=== PATIENT | female | born 1995 | race Caucasian/White ===

== ENCOUNTER 2017-11-30 22:10 | Outpatient (CLI) | payer OTHER, SELFPAY ==
[2017-11-30 22:35] VITALS: BMI 31.1
--- NOTE | 2017-12-01 07:59 | OB.TRI.NOTE ---
History of Present Illness Date of Service: 12/01/17 Was patient seen by the physician?: No Reason For Visit: DECREASED MOVEMENT Date of Service: 11/30/17 Allergies No Known Allergies Allergy (Verified 11/30/17 22:36) NST - FHR Rate Baby A Baseline: 130 Variability:: Moderate Accelerations:: 15 x 15 Decelerations:: None NST Reactive:: Yes FHR Category:: Category I Uterine Activity:: IRREGULAR Impression/Plan 22YO @ 37.6 WKS, DECREASED FM 1) NST - REACTIVE CATEGORY 1- WELL BEING ESTABLISHED 2) DC HOME
== END 2017-11-30 23:00 | disposition home or self-care (01) ==
LOC: WPOUT 22:33 → WP 22:33
PROVIDERS: Visit Provider Obstetrics & Gynecology
DX: O36.8130 Decreased fetal movements, third trimester, not applicable or unspecified (principal); Z3A.37 37 weeks gestation of pregnancy
CPT/HCPCS: 59025; 59050; 99218; G0378

== ENCOUNTER 2017-12-09 06:51 | Inpatient (IN) | payer OTHER, SELFPAY ==
[2017-12-09 06:56] VITALS: BMI 31.1
[2017-12-09 07:54] LABS: Hematocrit 30.4 % (37-47); Hemoglobin 9.6 g/dl (12.0-15.0); Mean Corp Hgb Conc 31.6 g/gl (32-36); Mean Corpuscular Volume 82.4 fL (81-99); Mean Platelet Vol. 11.1 fl (6.2-12.0); Platelet Count 251 K/mm3 (150-450); RBC Distribution Width CV 13.8 % (11.6-14.6); RBC Distribution Width SD 39.8 fl (35.1-43.9); Red Blood Count 3.69 M/mm3 (4.2-5.4); Scan Indicated on CBC? Y/N NO
[2017-12-09] MEDS: Oxytocin 30 units/NS 500 ml 30 UNITS/500 ML IV.SOLN IV (07:55)
[2017-12-09] MEDS: Lactated Ringers 1,000 ML 50 ML IV ×2 (07:55→11:37)
[2017-12-09] MEDS: fentaNYL-bupivacaine (epidural) 100 ML BAG EPIDURAL (11:40)
[2017-12-09] MEDS: Ondansetron 4 MG/2 ML Vial IV (15:27)
[2017-12-09] MEDS: Oxytocin 30 units/NS 500 ml 30 UNITS/500 ML IV.SOLN 334 UNITS IV (16:24)
--- NOTE | 2017-12-09 16:53 | HP.PCM_ITS ---
History Date of Admission: 12/09/17 Final MEGHANN: 12/15/17 Final MEGHANN Source: US <20 weeks Gestational age: 39 Weeks and 1 Days History of this : This is a 22 year-old, 2 para 1 female presents at 39 weeks 1 day gestation with EDC of 12/15/2017 by first trimester ultrasound alone presents for elective induction of labor. She denies any vaginal bleeding or leaking of fluid. She has had good movement and some regular contractions. Her was complicated to date by antepartum anemia and cholelithiasis. Allergies No Known Allergies Allergy (Verified 11/30/17 22:36) Home Medications: Home Medications Vits [Prenatabs FA ] 1 tablet PO DAILY 04/24/16 Smoking Status: Former smoker Alcohol: None Number of Fetus(es): 1 History Past Pregnancies: Past Pregnancies Delivery Date Name GA/Weeks Outcome Route Weight Infant Gender Labor Length Anesthesia Delivery Location Provider FOB Review of Systems Constitutional: Denies: Anorexia, Chills, Fever Cardiovascular: Denies: Chest Pain Respiratory: Denies: Shortness of Breath Gastrointestinal: Denies: Abdominal Pain Skin: Denies: Rash Physical Exam General: Alert, Cooperative, No apparent distress Cardiovascular: Regular rate Lungs: Normal air movement Abdomen: Soft, Non Tender, Non-Distended, Gravid, Appropriate for Gestational Age Extremities:: Other - trace edema MELTING SUPERVISOR: Normal external genitalia Estimated gestational size: Appropriate for gestational size Presentation: Cephalic Cervix Dilation (cm): 2.5 Station: -2 Effacement (%): 60 Assessment/Plan This is a 22 year-old, 2 para 1 at 39 1/7 weeks gestation for elective induction of labor. Risk benefits and alternatives have been discussed with the patient, her questions were answered to her satisfaction she desires to proceed. Estimated weight is less than 4500 g clinically and pelvis is clinically adequate to expect vaginal delivery. May have epidural, nitrous oxide or Nubain as needed for pain control.
--- NOTE | 2017-12-09 16:55 | PCM.OB.VAG ---
Vaginal Delivery Maternal Presentation: Elective Induction Method of Induction: Pitocin, Amniotomy Amniotic Membrane Rupture Type: Artificial Amniotic Fluid Description: Clear Final MEGHANN: 12/15/17 Final MEGHANN Source: US <20 weeks Gestational age: 39 Weeks and 1 Days Date of Procedure: 12/09/17 Pre-Operative Diagnosis: labor Post-Operative Diagnosis: same Surgery/ Procedure Performed: Spontaneous Vaginal Delivery Type of Anesthesia: Epidural Description of Procedure: A vigorous female was delivered JASMYN over a second-degree perineal laceration. The remainder the was delivered with maternal pushing and gentle traction only in less than 15 seconds. The Pitocin infusion was initiated for active management of the third stage. The cord was clamped and cut after 1 minute. The infant was attended to by the waiting nursing staff. The placenta was delivered spontaneously and intact. The cervix and vagina were intact. The second-degree perineal laceration was repaired with 3-0 Vicryl suture in a running standard fashion. Sponge and needle counts were correct. A vaginal sweep was completed by me. Presentation: JASMYN Placental Delivery Description: Spontaneous Placenta Disposition: [facility] Cord Vessel Description: 3 Vessels Cord Entanglement: None Estimated Blood Loss: 300 Infant A gender: Female (1 minute): 8 (5 minute): 9 Episiotomy Description: None Laceration: 2nd degree - Perineal Medications given after delivery: IV Pitocin Complications: None
[2017-12-09] MEDS: Oxytocin 30 units/NS 500 ml 30 UNITS/500 ML IV.SOLN 167 UNITS IV (17:00)
[2017-12-09 19:44] VITALS: BP 127/72; PULSE 76; RESP 17; TEMP 36.8; O2SAT 99
[2017-12-09] MEDS: Naproxen 250 MG Tablet PO (19:51)
[2017-12-09 23:58] VITALS: BP 110/59; PULSE 74; RESP 17; TEMP 37.2; O2SAT 98
[2017-12-09] MEDS: Acetaminophen 500 MG Tablet 1000 MG PO (23:58)
[2017-12-09] MEDS: Dibucaine 30 GM Tube 1 APPLIC TOPICAL (23:59)
[2017-12-10 02:35] VITALS: BP 119/80; TEMP 36.6
[2017-12-10 05:10] VITALS: BP 105/63; PULSE 74; RESP 16; TEMP 36.5; O2SAT 97
[2017-12-10 08:50] VITALS: BP 112/55; PULSE 65; RESP 16; TEMP 36.8
[2017-12-10] MEDS: Naproxen 250 MG Tablet PO (09:14)
--- NOTE | 2017-12-10 10:17 | DCINST_ITS ---
Discharge Diet: No Restrictions Discharge Activity: Return to Normal Activity, May not drive while taking narcotic pain medications., May Shower May resume sexual activity in: 4-6 weeks Additional Activity Instructions:: Nothing in the vagina for 4-6 weeks. You may return to work/school in 6 weeks. Call your doctor if your incision/area has: Continuous Slow Oozing, Sudden Increased Bleeding, Increased Pain/ Swelling, Increased Redness, Foul Smelling Discharge Additional Instructions: If you experience any of the following, contact your healthcare provider. * Bleeding that soaks a pad every hour for 2 hours * Fever 100.4 or higher * Unrelieved incision or abdominal pain * Swelling, redness, discharge or bleeding from your incision or episiotomy site * Your incision begins to separate * Problems urinating (including inability to urinate or burning while urinating). * Visual changes * Severe headache * Flu-like symptoms * Pain or redness in one of both of your breasts * Pain, warmth, tenderness or swelling in your legs, especially the calf area * Frequent nausea and vomiting * Symptoms of depression or anxiety If you experience any of the following, call 911 or go to the nearest Emergency Room. * Chest pain * Problems breathing * Seizure activity * Partial or complete paralysis of a body part, slurred speech, weakness or drooping of the face, or a sudden inability to walk or hold your balance Allergies/Adverse Reactions: Allergies No Known Allergies Allergy (Verified 11/30/17 22:36) Medications to take at Discharge Vits [Prenatabs FA ] 1 tablet PO DAILY 04/24/16 Ibuprofen [Motrin] 600 mg PO Q6H PRN #60 tablet 12/10/17 The following prescriptions were given: Ibuprofen [Motrin] 600 mg PO Q6H PRN #60 tablet PRN Reason: Pain Please Follow Up With: Desiree Drake MD - [phone] When: Call to make an appointment with your provider's office in 1-2 weeks if desired and in 6 weeks. If you had elevated Blood Pressure or 4th degree laceration you will need to be seen in 2 weeks. Primary Care Physician: Care Physician,No Primary [Primary Care Provider] - Test Results: Test results from this visit will be discussed in further detail at your follow- up appointment, if applicable.
--- NOTE | 2017-12-10 10:17 | PCM.PN.OB ---
Subjective: pain well controlled, average lochia - Physical Exam General: Alert, Cooperative, No apparent distress Vital Signs Temp Pulse Resp BP Pulse Ox 98.2 F 65 16 112/55 L 97 12/10/17 08:50 12/10/17 08:50 12/10/17 08:50 12/10/17 08:50 12/10/17 05:10 Oxygen Delivery Method Room Air Weight: 90.1 kg Body Mass Index (BMI) 31.1 Intake and Output for Last 24 Hours 12/08/17 12/09/17 12/10/17 23:59 23:59 23:59 Intake Total 2251 / 2251 Output Total 750 / 750 500 / 500 Balance 1501 / 1501 -500 / -500 Laboratory Tests Past 24 Hrs 12/09/17 07:35 Blood Type B POSITIVE Antibody Screen NEGATIVE Medical Necessity - Tobacco Use Smoking Status: Former smoker Assessment/Plan PPD#1 doing well infant bottlefeeding desires d/c today if ok w/ peds
[2017-12-10 12:08] VITALS: BP 119/74; PULSE 83; RESP 16; TEMP 36.8
[2017-12-10 16:00] VITALS: BP 112/71; PULSE 75; RESP 16; TEMP 36.8; O2SAT 96
== END 2017-12-10 18:00 | disposition home or self-care (01) | DRG 807 ==
PROVIDERS: Admitting Provider Obstetrics & Gynecology; Referring Provider Obstetrics & Gynecology; Visit Provider Obstetrics & Gynecology
DX: O99.02 Anemia complicating childbirth (principal); D64.9 Anemia, unspecified; O70.1 Second degree perineal laceration during delivery; Z87.891 Personal history of nicotine dependence; Z3A.39 39 weeks gestation of pregnancy; Z37.0 Single live birth
CPT/HCPCS: 59025; 59050; 85027; 86850; 86900; 99218; J7120; G0378; J2405

== ENCOUNTER 2017-12-13 19:00 | Inpatient (IN) | payer OTHER, SELFPAY ==
[2017-12-13 19:01] VITALS: BP 142/79; PULSE 111; RESP 18; TEMP 38.2; O2SAT 100; BMI 29.0
[2017-12-13 19:15] VITALS: BP 139/79; PULSE 109; RESP 16; O2SAT 98
--- NOTE | 2017-12-13 19:36 | RAD_ITS ---
STUDY: X-RAY CHEST REASON FOR EXAM: Female, 22 years old. Fever and cough with shortness of breath and bodyaches TECHNIQUE: AP COMPARISON: None. FINDINGS: The lungs are clear and expanded. There is no demonstrated pleural abnormality. Normal size heart. Normal mediastinum and altagracia. Normal visualized pulmonary arteries. Normal visualized aortic arch and descending thoracic aorta. Normal visualized thoracic spine. Normal visualized ribs, clavicles, and shoulders. There is no demonstrated abnormality of the visualized soft tissue structures of the upper abdomen. RAD/Chest 1 View (Portable) IMPRESSION: Normal x-ray examination of the chest. Electronically Signed: Randall Chao MD at 20:05 EST , Service support ,
[2017-12-13 20:08] LABS: Absolute Lymphocyte Count 0.89 X10^3/ul (0.83-4.51); Absolute Neutrophil Count 14.5 X10^3/uL (2.0-7.7); Basophil# 0.01 X10^3/uL; Basophil% 0.1 % (0-1); Eosinophil# 0.08 X10^3/uL; Eosinophils% 0.5 % (0-5); Hematocrit 30.3 % (37-47); Hemoglobin 9.3 g/dl (12.0-15.0); Lymphocyte # 0.89 X10^3/ul (4.0); Lymphocyte % 5.5 % (19-41); Mean Corp Hgb Conc 30.7 g/gl (32-36); Mean Corpuscular Hgb 25.1 pg (27.0-32.0); Mean Corpuscular Volume 81.7 fL (81-99); Mean Platelet Vol. 9.8 fl (6.2-12.0); Monocyte% 4.3 % (0-10); Neutrophil # 14.53 X10^3/uL (2.7-7.7); Neutrophil % 89.4 % (47-70); Platelet Count 249 K/mm3 (150-450); RBC Distribution Width CV 14.6 % (11.6-14.6); RBC Distribution Width SD 43.6 fl (35.1-43.9); Red Blood Count 3.71 M/mm3 (4.2-5.4); White Blood Count 16.3 K/mm3 (4.4-11.0)
[2017-12-13 20:13] LABS: POSITIVE COUNT NO; POSITIVE DIFFERENTIAL NO; POSITIVE MORPHOLOGY NO
[2017-12-13] MEDS: Acetaminophen 500 MG Tablet 1000 MG PO (20:15)
[2017-12-13] MEDS: 0.9% Normal Saline 1,000 ML 1000 ML IV (20:15)
[2017-12-13 20:29] LABS: Mucous, Urine 0 SEEN /hpf (<or=2+)
[2017-12-13 20:30] LABS: Glucose, Dipstick Normal (Normal); Ketone-Dipstick Negative (Negative); Leukocyte Esterase-Dipstick 500 /ul (Negative); Nitrite-Dipstick Negative (Negative); Occult Blood-Urine 250 /ul (Negative); Protein-Dipstick 100 mg/dl (Negative); Urine Bilirubin Dipstick Negative (Negative); Urine Clarity Cloudy (Clear); Urine Urobilinogen 4 mg/dl (Normal)
[2017-12-13 20:37] LABS: Color, Urine SEE COMMENT BELOW (Yellow)
[2017-12-13 20:38] LABS: ALB/GLOB Ratio 0.6 RATIO (0.9-2.4); AST(SGOT) 17 U/L (15-37); Alanine Aminotransfer ALT/SGPT 16 U/L (13-56); Albumin, Serum 2.7 g/dL (3.2-5.0); Alkaline Phosphatase 164 U/L (45-117); Anion Gap 9 (5-15); BUN 4 mg/dL (7-18); BUN/Creat Ratio 5.4 RATIO (10-20); Calcium,Total 8.2 mg/dL (8.5-10.1); Chloride 104 mmol/L (98-107); Creatinine, Serum 0.74 mg/dL (0.55-1.02); EST Glomerular Filtration Rate 103 mL/min (>60); Est Glom Filt Rate - Afr Amer 125 mL/min (>60); Estimated Creatinine Clearance 114.98 ml/min; Globulin 4.7 g/dL (2.2-4.2); Glucose 86 mg/dL (74-106); Potassium 3.3 mmol/L (3.5-5.1); Protein, Total 7.4 g/dL (6.4-8.2); Sodium Level 137 mmol/L (136-145)
[2017-12-13 20:39] LABS: Red Blood Cells-Urine > 100 SEEN /hpf (0-5); Squamous Epithelial Cells - UA 5-10 SEEN /hpf (5-10); White Blood Cells >100 SEEN /hpf (0-5)
[2017-12-13 20:40] LABS: Bacteria 2+ /hpf (None Seen)
[2017-12-13 20:41] LABS: Lactic Acid 1.1 mmol/L (0.4-2.0)
[2017-12-13] MEDS: Piperacil/Tazobactam 3.375 GM/50 ML ML IV (21:10)
[2017-12-13] MEDS: Ibuprofen 600 MG Tablet PO (21:10)
--- NOTE | 2017-12-13 21:22 | HP.PCM_ITS ---
Problem List (1) Sepsis Status: Acute (2) Cystitis Status: Acute History of Present Illness Date of Admission: 12/13/17 Chief Complaint: fever and chills The patient is a 22 year old F who is about 6 weeks and with a significant history of gallstones; and anemia during ; who presents with persistent fever and chills that started on the same day of admission. Patient reported that she had a temperature of 102.7 at home. Associated with her symptoms is generalized body aches and abdominal cramps. Her abdominal cramps has resolved. Patient was noted to have heart rate persistently above 100 while at the emergency department. On December 09, 2017 patient had a vaginal delivery of a baby girl. She did not have any complications during or delivery. PRINT COLOR OPERATOR evaluated patient at the emergency department and cleared patient for any OB issues. Patient reports that her vaginal discharge has been declining. She denies any odor to her vaginal discharge. Patient denies any urinary symptoms. At the emergency department patient was found to have abnormal urinalysis. Past Medical History Medical History: Medical History (Last Updated 12/13/17 @ 21:46 by Flako Jim MD) Gallstone K80.20 Allergies No Known Allergies Allergy (Verified 12/13/17 19:01) Home Medications: Ambulatory Orders Medication Instructions Recorded Ibuprofen [Motrin] 600 mg PO Q6H PRN #60 tablet 12/10/17 Acetaminophen [Tylenol Extra 1,000 mg PO Q6H PRN 12/13/17 Strength] Ferrous Gluconate [Iron] 1 tab PO BID 12/13/17 Surgical History: no surgical history Lives: With Family Smoking Status: Never smoker Tobacco Use: Non-smoker Alcohol: Occasional - *Family History Maternal Family History: Family History (Last Reviewed 12/13/17 @ 23:59 by Flako Jim MD) Mother Cervical cancer Review of Systems Constitutional: Reports: Anorexia, Chills, Fever. Denies: Weight Change HEENT: Reports: Head Aches. Denies: Sinus Congestion, Sinus Drainage Cardiovascular: Denies: Chest Pain, Palpitations Respiratory: Denies: Cough, Shortness of breath at rest, Sputum production Gastrointestinal: Reports: Abdominal Pain. Denies: Nausea, Vomiting Genitourinary: Denies: Dysuria Musculoskeletal: Denies: Joint Pain, Joint Tenderness Skin: Denies: Rash, Wounds Neurological: Denies: Numbness, Tingling, Focal weakness Psychiatric: Denies: Anxiety, Depression, Homicidal Ideations, Suicidal Ideations Hematologic/ Lymphatic: Denies: Easy Bruising, Easy Bleeding VTE Information - Inpt Only VTE Present on Admission: No VTE Mechan Device Prophylaxis: None VTE Pharm Prophylaxis ordered?: Yes Patient Problems: Active and Suspected Problems (Last Updated 12/13/17 @ 21:46 by Flako Jim MD) Sepsis (Acute) Cystitis (Acute) - Physical Exam General: Alert, Oriented x3, Cooperative HEENT: Atraumatic, PERRLA, EOMI, Normocephalic Neck: Supple, No JVD, Negative Carotid Bruits Lungs: Clear to auscultation, Normal air movement Cardiovascular: Regular rate, No murmurs Abdomen: Bowel Sounds Present, Soft, Non Tender Extremities: No edema, Capillary Refill Less than 3 Seconds Skin: No rashes, No breakdown Musculoskeletal: No Tenderness to Palpation of Joints or Extremities Neurological: Cranial nerves II-XII grossly intact Psych/Mental Status: Normal Affect, Appropriate Vital Signs Temp Pulse Resp BP Pulse Ox 100.8 F H 109 H 16 139/79 H 98 12/13/17 19:01 12/13/17 19:15 12/13/17 19:15 12/13/17 19:15 12/13/17 19:15 Oxygen Delivery Method Room Air Weight: 84 kg Body Mass Index (BMI) 29.0 Microbiology Past 72 Hours 12/13/17 19:45 Influenza Types A,B Direct FA (KOURTNEY) - Final Mucosa - Nasopharyngeal Laboratory Tests Past 24 Hrs 12/13/17 12/13/17 12/13/17 19:55 19:55 19:55 WBC 16.3 H RBC 3.71 L Hgb 9.3 L Hct 30.3 L MCV 81.7 MCH 25.1 L MCHC 30.7 L RDW 14.6 RDW Differential 43.6 Plt Count 249 MPV 9.8 Immature Gran % (Auto) 0.200 Neut % (Auto) 89.4 H Lymph % (Auto) 5.5 L [place] % (Auto) 4.3 Eos % (Auto) 0.5 Baso % (Auto) 0.1 Absolute Neuts (auto) 14.5 H Absolute Lymphs (auto) 0.89 Total Counted Not Reportable Sodium 137 Potassium 3.3 L Chloride 104 Carbon Dioxide 24.0 Anion Gap 9 BUN 4 L Creatinine 0.74 Estim Creat Clear Calc 114.98 Est GFR (MDRD) Af Amer 125 Est GFR (MDRD) Non-Af 103 BUN/Creatinine Ratio 5.4 L Glucose 86 Lactic Acid 1.1 Calcium 8.2 L Total Bilirubin 0.60 AST 17 ALT 16 Alkaline Phosphatase 164 H Total Protein 7.4 Albumin 2.7 L Globulin 4.7 H Albumin/Globulin Ratio 0.6 L Urine Color Urine Clarity Urine pH Ur Specific [place] Urine Protein Urine Glucose (UA) Urine Ketones Urine Occult Blood Urine Nitrite Urine Bilirubin Urine Urobilinogen Ur Leukocyte Esterase Urine RBC Urine WBC Ur Squamous Epith Cells Urine Bacteria Urine Mucus 12/13/17 20:25 WBC RBC Hgb Hct MCV MCH MCHC RDW RDW Differential Plt Count MPV Immature Gran % (Auto) Neut % (Auto) Lymph % (Auto) [place] % (Auto) Eos % (Auto) Baso % (Auto) Absolute Neuts (auto) Absolute Lymphs (auto) Total Counted Sodium Potassium Chloride Carbon Dioxide Anion Gap BUN Creatinine Estim Creat Clear Calc Est GFR (MDRD) Af Amer Est GFR (MDRD) Non-Af BUN/Creatinine Ratio Glucose Lactic Acid Calcium Total Bilirubin AST ALT Alkaline Phosphatase Total Protein Albumin Globulin Albumin/Globulin Ratio Urine Color SEE COMMENT BELOW Urine Clarity Cloudy Urine pH 8.0 Ur Specific [place] 1.010 Urine Protein 100 H Urine Glucose (UA) Normal Urine Ketones Negative Urine Occult Blood 250 H Urine Nitrite Negative Urine Bilirubin Negative Urine Urobilinogen 4 H Ur Leukocyte Esterase 500 H Urine RBC > 100 SEEN Urine WBC >100 SEEN Ur Squamous Epith Cells 5-10 SEEN Urine Bacteria 2+ Urine Mucus 0 SEEN Assessment/Plan All Active Problems (Last Updated 12/13/17 @ 21:46 by Flako Jim MD) Sepsis (Acute) Cystitis (Acute) The patient is a 22 year old F who is about 6 weeks and with a significant history of gallstones; and anemia during who presents with fever and chills and found to have tachycardia; elevated white count and abnormal urinalysis. Sepsis due to Cystitis Patient meets SIRS criteria with a white count of 16.3; temperature of 102.7 at home; and 100.8 over here; and heart rate persistently above 100. Source of infection likely is urinary. Of note OBGYN does not think it is uterine or post- related. Patient received vancomycin and Zosyn in the emergency department Flu test was negative. Chest x-ray independently reviewed was unremarkable. Blood cultures are pending. Urinary cultures are pending Lactate is unremarkable. We will continue patient on ceftriaxone. Patient received IV bolus at emergency department. We will continue patient on normal sinus and 75 mL's per hour. Tylenol and ibuprofen as needed for fever DVT prophylaxis Subcu Lovenox. Code Visit Inpatient E&M: 79312 Init Hosp L3
--- NOTE | 2017-12-13 21:30 | ED.VISSUMM ---
- ER Visit Summary Date of Service: 12/13/17 Chief Complaint: Fever, chills, body aches History of Present Illness: The patient is a 22 F with fever, chills, and body aches that started this morning. She does have a frontal headache and had some abdominal cramps only this morning. She had a vaginal delivery on December [address] Drake. Her and delivery were uncomplicated. She has had decreased vaginal discharge and bleeding every day since. Other than this morning, she has had no cramping. Denies urinary symptoms. Denies respiratory symptoms. Denies upper respiratory symptoms, neck pain, joint pains, or rash. She does have some bilateral lower extremity edema. Denies any calf pain. Denies any history of PE or DVT. Denies any history of hypertensive disease during . No breast redness or pain. Physical Examination: Temperature 100.8 and heart rate 106. Blood pressure 139/79. Otherwise vitals normal. She is alert and oriented and appears in no acute distress. Skin appears unremarkable. Heart is tachycardic but regular. Lungs are clear. Abdomen soft and nontender. Lower extremities show edema at her ankles, symmetric. Calves soft and supple. Pulses strong and equal. Test Results: White count has increased from 12-16.3. Hemoglobin is stable. Potassium 3.3 and alkaline phosphatase 164. Urinalysis shows elevated white cells, red cells and leukocyte esterase. Cultures pending. Blood cultures pending. Lactate 1.1. Influenza testing negative. Chest x-ray shows a normal x-ray. Emergency Department Course and Treatment: Patient received a fluid bolus. She was also treated with Tylenol while awaiting results. She had continued tachycardia but her blood pressure remained stable. She had a continued fever and required treatment with Motrin. She was discussed with ESTRELLA Yoon who evaluated the patient in the emergency department and also discussed with the SR. MEDIA MANAGER on-call. They had no further recommendations at this time. They do not believe that this is an SR. MEDIA MANAGER issue. They did recommend biopsying her. I believe this is reasonable. She continues to be febrile and tachycardic. I discussed with the hospitalist who will evaluate. Patient was treated empirically with Zosyn and vancomycin. Treatment Plan: As above Disposition: Admission Impression: 1. Sepsis 2. UTI This note was generated with [employer] software. It may contain incorrect words, spelling, and punctuation that were not noted in review of the chart prior to signing ED Disposition - Plan for ED Patient: Chief Complaint: Fever Referrals: Care Physician,No Primary [Primary Care Provider] -
--- NOTE | 2017-12-13 21:39 | ED.DCSUM_ITS ---
- ER Visit Summary Date of Service: 12/13/17 Chief Complaint: Fever, chills, body aches History of Present Illness: The patient is a 22 F with fever, chills, and body aches that started this morning. She does have a frontal headache and had some abdominal cramps only this morning. She had a vaginal delivery on December [address] Drake. Her and delivery were uncomplicated. She has had decreased vaginal discharge and bleeding every day since. Other than this morning, she has had no cramping. Denies urinary symptoms. Denies respiratory symptoms. Denies upper respiratory symptoms, neck pain, joint pains, or rash. She does have some bilateral lower extremity edema. Denies any calf pain. Denies any history of PE or DVT. Denies any history of hypertensive disease during . No breast redness or pain. Physical Examination: Temperature 100.8 and heart rate 106. Blood pressure 139/79. Otherwise vitals normal. She is alert and oriented and appears in no acute distress. Skin appears unremarkable. Heart is tachycardic but regular. Lungs are clear. Abdomen soft and nontender. Lower extremities show edema at her ankles, symmetric. Calves soft and supple. Pulses strong and equal. Test Results: White count has increased from 12-16.3. Hemoglobin is stable. Potassium 3.3 and alkaline phosphatase 164. Urinalysis shows elevated white cells, red cells and leukocyte esterase. Cultures pending. Blood cultures pending. Lactate 1.1. Influenza testing negative. Chest x-ray shows a normal x-ray. Emergency Department Course and Treatment: Patient received a fluid bolus. She was also treated with Tylenol while awaiting results. She had continued tachycardia but her blood pressure remained stable. She had a continued fever and required treatment with Motrin. She was discussed with ESTRELLA Yoon who evaluated the patient in the emergency department and also discussed with the VP PRODUCT MARKETING on-call. They had no further recommendations at this time. They do not believe that this is an VP PRODUCT MARKETING issue. They did recommend biopsying her. I believe this is reasonable. She continues to be febrile and tachycardic. I discussed with the hospitalist who will evaluate. Patient was treated empirically with Zosyn and vancomycin. Treatment Plan: As above Disposition: Admission Impression: 1. Sepsis 2. UTI This note was generated with [employer] software. It may contain incorrect words, spelling, and punctuation that were not noted in review of the chart prior to signing ED Disposition - Plan for ED Patient: Chief Complaint: Fever Referrals: Care Physician,No Primary [Primary Care Provider] -
[2017-12-13 21:40] VITALS: BP 130/80; PULSE 95; RESP 14; RESP 15; O2SAT 98
[2017-12-13] MEDS: 0.9% Normal Saline 1,000 ML 999 ML IV (21:50)
[2017-12-13 22:13] VITALS: BMI 29.0
[2017-12-13 22:48] VITALS: BP 120/60; PULSE 90; RESP 14; TEMP 36.9; O2SAT 95
[2017-12-14] VITALS (8 sets, daily range): BP systolic 120–148; BP diastolic 53–82; PULSE 77–95; RESP 14–20; TEMP 36.7–39.2; O2SAT 94–99
[2017-12-14] MEDS: 0.9% Normal Saline 1,000 ML 75 ML IV (01:06)
[2017-12-14 06:29] LABS: Anion Gap 6 (5-15); BUN 5 mg/dL (7-18); BUN/Creat Ratio 8.6 RATIO (10-20); Calcium,Total 7.6 mg/dL (8.5-10.1); Chloride 110 mmol/L (98-107); Creatinine, Serum 0.58 mg/dL (0.55-1.02); EST Glomerular Filtration Rate 135 mL/min (>60); Est Glom Filt Rate - Afr Amer 164 mL/min (>60); Estimated Creatinine Clearance 141.22 ml/min; Glucose 90 mg/dL (74-106); Potassium 3.3 mmol/L (3.5-5.1); Sodium Level 141 mmol/L (136-145)
[2017-12-14 06:47] LABS: Absolute Lymphocyte Count 0.55 X10^3/ul (0.83-4.51); Absolute Neutrophil Count 11.9 X10^3/uL (2.0-7.7); Basophil# 0.02 X10^3/uL; Basophil% 0.2 % (0-1); Eosinophil# 0.06 X10^3/uL; Eosinophils% 0.5 % (0-5); Hematocrit 29.3 % (37-47); Hemoglobin 9.2 g/dl (12.0-15.0); Lymphocyte # 0.55 X10^3/ul (4.0); Lymphocyte % 4.2 % (19-41); Mean Corp Hgb Conc 31.4 g/gl (32-36); Mean Corpuscular Volume 82.8 fL (81-99); Monocyte# 0.49 X10^3/uL; Monocyte% 3.7 % (0-10); Neutrophil # 11.87 X10^3/uL (2.7-7.7); Neutrophil % 90.8 % (47-70); Platelet Count 269 K/mm3 (150-450); RBC Distribution Width CV 14.5 % (11.6-14.6); RBC Distribution Width SD 41.9 fl (35.1-43.9); Red Blood Count 3.54 M/mm3 (4.2-5.4); White Blood Count 13.1 K/mm3 (4.4-11.0)
[2017-12-14 06:55] LABS: Differential Indicated SCAN CRITERIA MET; POSITIVE COUNT NO; POSITIVE DIFFERENTIAL YES; POSITIVE MORPHOLOGY NO
[2017-12-14 06:58] LABS: Differential Comment SCANNED
[2017-12-14] MEDS: Acetaminophen 325 MG Tablet 650 MG PO ×2 (07:46→15:30)
[2017-12-14] MEDS: 0.9% NaCl Peripheral Flush Adult/Peds IV (08:12)
[2017-12-14] MEDS: Ceftriaxone 1 GM/50 ML BAG IV (10:42)
[2017-12-14] MEDS: Prenatal Vits Tablet 1 TABLET PO (10:43)
--- NOTE | 2017-12-14 10:55 | CASEMGMT ---
CHRIS AUGUSTIN Face to Face with patient for initial transition planning/care coordination assessment. RN CHARLI introduced self and role at [facility]. Patient lying in bed, alert and oriented, fiance at bedside. Patient willing to participate in assessment and is able to answer all questions appropriately. Care providers, pharmacy, and demographics verified. Patient wishes to discharge home, denies need for home health at this time. Patient states she has no further needs or concerns at this time. CM to follow for discharge planning needs that may arise. PCP: No PCP, list of physicians provided to patient Specialists: None Preferred Pharmacy: [facility] Insurance: Medical [place] Prescription Benefit: [employer] [place] Living Will/HPOA: None LNOK: Fiance Living Arrangements: Patient lives with fitommy in 2 story home with children. Patient is independent at home. Transportation: Self/Fiance DME/HHC: Declined need for DME or HHC Disposition Plan: Patient to discharge home with family support and follow-up plans in place. Janett KEMP, RN, CM
--- NOTE | 2017-12-14 11:58 | PN_ITS ---
Patient Problems: Active and Suspected Problems (Last Updated 12/13/17 @ 21:46 by Flako Jim MD) Sepsis (Acute) Cystitis (Acute) Subjective: Patient was seen and examined today, she had an elevated temperature earlier today of over 101 oral, patient had some dysuria today also. Patient's white blood cell count has decreased to 13.1, her potassium was low at 3.3. Patient denies any chills or sweating at the present time. - Physical Exam General: Alert, Oriented x3, Cooperative, No apparent distress, Well developed, Well nourished HEENT: Atraumatic, PERRLA, EOMI, Normocephalic Oral: Moist Mucosa Neck: Supple, No Nuchal Rigidity, Trachea Midline, Thyroid Normal Size and Texture Lungs: Clear to auscultation, Normal air movement, No rhonchi, No wheeze, No rales Cardiovascular: Regular rate, Regular Rhythm, Normal S1, Normal S2, No murmurs, No Ectopic Activity, PMI Normal, No rub noted Abdomen: Bowel Sounds Present, Soft, Non Tender, Non-Distended, No hernias noted Extremities: No clubbing, No cyanosis, No edema, Capillary Refill Less than 3 Seconds Skin: No rashes, No breakdown Musculoskeletal: No Tenderness to Palpation of Joints or Extremities Neurological: Cranial nerves II-XII grossly intact, Neuro grossly intact, S ensory exam intact to light touch and pain, Coordination normal Psych/Mental Status: Normal Affect, Appropriate, Alert and oriented to time, place, person, mood and affect Vital Signs Temp Pulse Resp BP Pulse Ox 101.9 F H 92 20 H 135/76 H 97 12/14/17 07:16 12/14/17 07:16 12/14/17 07:22 12/14/17 07:16 12/14/17 07:32 Oxygen Delivery Method Room Air Weight: 83.9 kg Body Mass Index (BMI) 29.0 Intake and Output for Last 24 Hours 12/13/17 12/13/17 12/14/17 00:59 23:59 23:59 Intake Total 1300 / 1300 Output Total 300 / 300 Balance 1000 / 1000 Microbiology Past 72 Hours 12/13/17 19:45 Influenza Types A,B Direct FA (KOURTNEY) - Final Mucosa - Nasopharyngeal Laboratory Tests Past 24 Hrs 12/13/17 12/13/17 12/13/17 19:55 19:55 19:55 WBC 16.3 H RBC 3.71 L Hgb 9.3 L Hct 30.3 L MCV 81.7 MCH 25.1 L MCHC 30.7 L RDW 14.6 RDW Differential 43.6 Plt Count 249 MPV 9.8 Immature Gran % (Auto) 0.200 Neut % (Auto) 89.4 H Lymph % (Auto) 5.5 L Reagan % (Auto) 4.3 Eos % (Auto) 0.5 Baso % (Auto) 0.1 Absolute Neuts (auto) 14.5 H Absolute Lymphs (auto) 0.89 Total Counted Not Reportable Differential Comment Sodium 137 Potassium 3.3 L Chloride 104 Carbon Dioxide 24.0 Anion Gap 9 BUN 4 L Creatinine 0.74 Estim Creat Clear Calc 114.98 Est GFR (MDRD) Af Amer 125 Est GFR (MDRD) Non-Af 103 BUN/Creatinine Ratio 5.4 L Glucose 86 Lactic Acid 1.1 Calcium 8.2 L Total Bilirubin 0.60 AST 17 ALT 16 Alkaline Phosphatase 164 H Total Protein 7.4 Albumin 2.7 L Globulin 4.7 H Albumin/Globulin Ratio 0.6 L Urine Color Urine Clarity Urine pH Ur Specific [place] Urine Protein Urine Glucose (UA) Urine Ketones Urine Occult Blood Urine Nitrite Urine Bilirubin Urine Urobilinogen Ur Leukocyte Esterase Urine RBC Urine WBC Ur Squamous Epith Cells Urine Bacteria Urine Mucus 12/13/17 12/14/17 12/14/17 20:25 05:30 05:30 WBC 13.1 H RBC 3.54 L Hgb 9.2 L Hct 29.3 L MCV 82.8 MCH 26.0 L MCHC 31.4 L RDW 14.5 RDW Differential 41.9 Plt Count 269 MPV 10.0 Immature Gran % (Auto) 0.600 Neut % (Auto) 90.8 H Lymph % (Auto) 4.2 L Reagan % (Auto) 3.7 Eos % (Auto) 0.5 Baso % (Auto) 0.2 Absolute Neuts (auto) 11.9 H Absolute Lymphs (auto) 0.55 L Total Counted Not Reportable Differential Comment SCANNED Sodium 141 Potassium 3.3 L Chloride 110 H Carbon Dioxide 25.0 Anion Gap 6 BUN 5 L Creatinine 0.58 Estim Creat Clear Calc 141.22 Est GFR (MDRD) Af Amer 164 Est GFR (MDRD) Non-Af 135 BUN/Creatinine Ratio 8.6 L Glucose 90 Lactic Acid Calcium 7.6 L Total Bilirubin AST ALT Alkaline Phosphatase Total Protein Albumin Globulin Albumin/Globulin Ratio Urine Color SEE COMMENT BELOW Urine Clarity Cloudy Urine pH 8.0 Ur Specific [place] 1.010 Urine Protein 100 H Urine Glucose (UA) Normal Urine Ketones Negative Urine Occult Blood 250 H Urine Nitrite Negative Urine Bilirubin Negative Urine Urobilinogen 4 H Ur Leukocyte Esterase 500 H Urine RBC > 100 SEEN Urine WBC >100 SEEN Ur Squamous Epith Cells 5-10 SEEN Urine Bacteria 2+ Urine Mucus 0 SEEN Medical Necessity - Tobacco Use Smoking Status: Never smoker Tobacco Use: Non-smoker Assessment/Plan All Active Problems (Last Updated 12/13/17 @ 21:46 by Flako Jim MD) Sepsis (Acute) Cystitis (Acute) #1 acute sepsis secondary to acute cystitis-presumed to be secondary to gram- negative bacteria-continue Rocephin IV #2 acute cystitis secondary to presumed gram-negative bacteria-continue IV Rocephin #3 Hypokalemia-oral potassium will be administered today Code Visit Inpatient E&M: 39410 Subs Hosp L2
[2017-12-14] MEDS: Magnesium Hydroxide 30 ML UDC PO (14:52)
[2017-12-15] MEDS: Ondansetron 4 MG/2 ML Vial IV (01:37)
[2017-12-15] MEDS: 0.9% NaCl Peripheral Flush Adult/Peds IV ×2 (01:40→09:35)
[2017-12-15 01:44] VITALS: BP 143/82; PULSE 89; RESP 16; TEMP 38.1; O2SAT 94
[2017-12-15] MEDS: Acetaminophen 325 MG Tablet 650 MG PO (01:47)
[2017-12-15 02:46] VITALS: TEMP 37.7
[2017-12-15 07:47] VITALS: BP 132/86; PULSE 70; RESP 18; TEMP 36.8; O2SAT 94
[2017-12-15 07:49] LABS: Absolute Lymphocyte Count 1.11 X10^3/ul (0.83-4.51); Absolute Neutrophil Count 8.9 X10^3/uL (2.0-7.7); Basophil# 0.02 X10^3/uL; Basophil% 0.2 % (0-1); Eosinophil# 0.04 X10^3/uL; Eosinophils% 0.4 % (0-5); Hematocrit 26.3 % (37-47); Hemoglobin 8.3 g/dl (12.0-15.0); Lymphocyte # 1.11 X10^3/ul (4.0); Lymphocyte % 10.3 % (19-41); Mean Corp Hgb Conc 31.6 g/gl (32-36); Mean Corpuscular Volume 82.4 fL (81-99); Mean Platelet Vol. 9.6 fl (6.2-12.0); Monocyte# 0.66 X10^3/uL; Monocyte% 6.1 % (0-10); Neutrophil # 8.85 X10^3/uL (2.7-7.7); Neutrophil % 82.3 % (47-70); POSITIVE COUNT NO; POSITIVE DIFFERENTIAL NO; POSITIVE MORPHOLOGY NO; Platelet Count 242 K/mm3 (150-450); RBC Distribution Width CV 14.5 % (11.6-14.6); RBC Distribution Width SD 41.8 fl (35.1-43.9); Red Blood Count 3.19 M/mm3 (4.2-5.4); White Blood Count 10.8 K/mm3 (4.4-11.0)
[2017-12-15 08:12] VITALS: RESP 18
[2017-12-15] MEDS: Ceftriaxone 1 GM/50 ML BAG IV (09:32)
[2017-12-15] MEDS: Prenatal Vits Tablet 1 TABLET PO (09:36)
--- NOTE | 2017-12-15 09:54 | DCINST_ITS ---
- Discharge Diagnoses Current Active Problems: Current Active and Chronic Problems (Last Updated 12/13/17 @ 21:46 by Flako Jim MD) Sepsis (Acute) Cystitis (Acute) You will use the following diet at home:: No restrictions Your food should be the consistency of: Regular Your liquids should be the consistency of: Regular/Thin Discharge Activity: Return to Normal Activity Weight Bearing Status: Full weight bearing Allergies/Adverse Reactions: Allergies No Known Allergies Allergy (Verified 12/13/17 19:01) Medications to take at Discharge Ibuprofen [Motrin] 600 mg PO Q6H PRN #60 tablet 12/10/17 Acetaminophen [Tylenol Extra Strength] 1,000 mg PO Q6H PRN 12/13/17 Ferrous Gluconate [Iron] 1 tab PO BID 12/13/17 Acetaminophen [Tylenol Tablet] 650 mg PO Q6H PRN PRN tablet 12/15/17 Cephalexin [Keflex] 500 mg PO TID #21 capsule 12/15/17 Ondansetron [Zofran] 8 mg PO Q6H PRN PRN #14 tab 12/15/17 The following prescriptions were given: Ondansetron [Zofran] 8 mg PO Q6H PRN PRN #14 tab PRN Reason: Nausea Cephalexin [Keflex] 500 mg PO TID #21 capsule Primary Care Physician: Care Physician,No Primary [Primary Care Provider] - Please follow up with your Primary Care Physician in: as needed Test Results: Test results from this visit will be discussed in further detail at your follow- up appointment, if applicable.
[2017-12-15 11:05] VITALS: BP 118/70; PULSE 74; RESP 18; TEMP 36.7; O2SAT 98
--- NOTE | 2017-12-16 10:56 | DS.PCM_ITS ---
Discharge Date and Diagnosis Date of Admission: 12/13/17 Date of Discharge: 12/15/17 - Primary Discharge Diagnosis #1 acute sepsis and bacteremia with anaerobic gram-positive cocci-secondary to acute cystitis #2 acute cystitis-suspected secondary to anaerobic gram-positive cocci #3 hypokalemia Hospital Course and Treatment Operations: None Procedures: None Summary of Care Provided: The patient is a 22 year old F was seen in the emergency room at [facility] with chief complaint of fever, chills, and myalgias. Evaluation of the patient revealed her temperature to be 100.8, heart rate was increased at 106, labs showed an elevated white blood cell count at 16.3, potassium was low at 3.3, urinalysis showed elevated white cells, red cells, and leukocyte esterase. Lactate was 1.1. Chest x-ray was normal. Patient received a fluid bolus in the emergency room and was given Tylenol and Motrin for temperature elevation. Hospitalist service was contacted for admission, patient was felt to have acute sepsis secondary to acute cystitis, she was given IV Zosyn and vancomycin in the emergency room, she was admitted to [place] [address] and Rocephin was administered as a sole antibiotic. Patient's CBC was monitored and her white count declined over the next 48 hours, patient became afebrile, blood culture was positive for anaerobic gram-negative cocci-exact identification of this organism was not obtained. Urine culture showed mixed organisms, patient was given oral potassium for potassium replacement. On 12/15/17, patient was seen and examined: On examination she appeared in good health and spirits. Vital signs as documented. Skin warm and dry and without overt rashes. Neck without JVD. Lungs clear. Heart exam notable for regular rhythm, normal sounds and absence of mur murs, rubs or gallops. Abdomen unremarkable and without evidence of organomegaly, masses, or abdominal aortic enlargement. Extremities nonedematous. Neuro: Cranial nerves II through XII are intact, sensation to light touch and pinprick was intact, no focal motor deficits were noted. Psych: Patient was alert and oriented x3, she did not appear anxious or depressed. On 12/15/17, patient was seen and examined and felt to be in stable condition for discharge home. - Physical Exam Vital Signs Temp Pulse Resp BP Pulse Ox 98.0 F 74 18 118/70 98 12/15/17 11:05 12/15/17 11:05 12/15/17 11:05 12/15/17 11:05 12/15/17 11:05 Oxygen Flow Rate (L/min) 2 Oxygen Delivery Method Nasal Cannula Weight: 83.9 kg Body Mass Index (BMI) 29.0 Intake and Output for Last 24 Hours 12/14/17 12/15/17 12/16/17 23:59 23:59 23:59 Intake Total 1300 / 1300 610 / 610 Output Total 300 / 300 800 / 800 Balance 1000 / 1000 -190 / -190 Microbiology Past 72 Hours 12/13/17 19:55 Blood Culture - Preliminary Blood Culture (Wb) - Anticubital Left Anaerobic cocci 12/13/17 20:53 Blood Culture - Preliminary Blood Culture (Wb) - Right Forearm 12/13/17 20:25 Urine Culture - Final Urine, Clean Catch Mixed Gram Positive Organisms 12/13/17 19:45 Influenza Types A,B Direct FA (KOURTNEY) - Final Mucosa - Nasopharyngeal Discharge Activity: Return to Normal Activity Weight Bearing Status: Full weight bearing Home Medications: Medications to take at Discharge Ibuprofen [Motrin] 600 mg PO Q6H PRN #60 tablet 12/10/17 Acetaminophen [Tylenol Extra Strength] 1,000 mg PO Q6H PRN 12/13/17 Ferrous Gluconate [Iron] 1 tab PO BID 12/13/17 Acetaminophen [Tylenol Tablet] 650 mg PO Q6H PRN PRN tablet 12/15/17 Cephalexin [Keflex] 500 mg PO TID #21 capsule 12/15/17 Ondansetron [Zofran] 8 mg PO Q6H PRN PRN #14 tab 12/15/17 Following Prescrptions Were Given to Patient: Ondansetron [Zofran] 8 mg PO Q6H PRN PRN #14 tab PRN Reason: Nausea Cephalexin [Keflex] 500 mg PO TID #21 capsule Primary Care Physician: Care Physician,No Primary [Primary Care Provider] - Please follow up with your Primary Care Physician in: as needed Disposition: Home Minutes spent on discharge:: 32 Patient Condition:: Stable Medical Necessity - Tobacco Use Smoking Status: Never smoker Tobacco Use: Non-smoker Meaningful Use Info Meaningful Use Diagnoses (Choose all that apply): None applicable Code Visit Inpatient E&M: 82513 Disch Hosp
== END 2017-12-15 11:21 | disposition home or self-care (01) | DRG 776 ==
LOC: ED 19:41 → MS3 21:40
PROVIDERS: Admitting Provider Hospitalist; Emergency Provider Emergency Medicine; Visit Provider Internal Medicine
DX: O86.22 Infection of bladder following delivery (principal); N30.00 Acute cystitis without hematuria; B96.89 Other specified bacterial agents as the cause of diseases classified elsewhere; E87.6 Hypokalemia; Z23 Encounter for immunization
CPT/HCPCS: 36415; 71045; 80048; 80053; 81001; 83605; 85025; 87040; 87086; 87088; 87804; 94762; 99284; J7030; 90686; A4216; J2405

== ENCOUNTER 2018-03-30 23:49 | Emergency (ER) | payer OTHER, SELFPAY ==
[2018-03-30 23:51] VITALS: BP 102/80; PULSE 120; RESP 17; TEMP 37.6; O2SAT 96; BMI 26.6
--- NOTE | 2018-03-31 00:46 | ED.VISSUMM ---
- ER Visit Summary Date of Service: 03/31/18 Chief Complaint: Nausea, vomiting History of Present Illness: The patient is a 22 F presenting with nausea, vomiting. She states this started earlier today. She went to urgent care. She was advised if she developed a fever that she should come to the emergency department. She states she had a temperature up to 100.7 at home. She had several episodes of vomiting today. She has mild diarrhea. She denies abdominal pain. She has a history of gallstones and is scheduled to have her gallbladder removed. Denies sick contacts. Physical Examination: Vitals are stable. Patient is afebrile. Heart rate 120. Alert no acute distress. HEENT exam dry mucous membranes Neck is supple. Lungs are clear and equal bilaterally. Heart is regular tachycardic Abdomen is soft nontender nondistended. No guarding or rebound Extremities are unremarkable. Skin is warm and dry. Remainder of exam is unremarkable. Emergency Department Course and Treatment: Patient was given IV fluids, Zofran. CBC, chemistries unremarkable other than potassium 3.4, glucose 115. Liver lipase are normal. HCG negative. Patient is feeling improved on reevaluation. She is able to tolerate p.o. Repeat heart rate 98. She has a prescription for Zofran at home. She is advised to follow-up with primary care physician. Advised return to ED if worsening complaints. Disposition: Discharge home Impression: Nausea, vomiting This note was generated with [employer] dictation software. It may contain incorrect words, spelling, and punctuation that were not noted in review of the chart prior to signing ED Disposition - Plan for ED Patient: Instructions: ED Nausea Vomiting Referrals: Bryan Kenny MD [STAFF PHYSICIAN] -
[2018-03-31] MEDS: 0.9% Normal Saline 1,000 ML 1000 ML IV ×2 (01:21→01:39)
[2018-03-31] MEDS: Ondansetron 4 MG/2 ML Vial IV (01:21)
[2018-03-31 01:35] LABS: Absolute Lymphocyte Count 0.44 X10^3/ul (0.83-4.51); Absolute Neutrophil Count 8.2 X10^3/uL (2.0-7.7); Basophil# 0.02 X10^3/uL; Basophil% 0.2 % (0-1); Hematocrit 41.3 % (37-47); Hemoglobin 13.2 g/dl (12.0-15.0); Lymphocyte # 0.44 X10^3/ul (4.0); Lymphocyte % 4.9 % (19-41); Mean Corpuscular Hgb 27.4 pg (27.0-32.0); Mean Corpuscular Volume 85.7 fL (81-99); Mean Platelet Vol. 10.1 fl (6.2-12.0); Monocyte# 0.31 X10^3/uL; Monocyte% 3.4 % (0-10); Neutrophil # 8.22 X10^3/uL (2.7-7.7); Neutrophil % 91.4 % (47-70); Platelet Count 254 K/mm3 (150-450); RBC Distribution Width CV 14.6 % (11.6-14.6); RBC Distribution Width SD 45.4 fl (35.1-43.9); Red Blood Count 4.82 M/mm3 (4.2-5.4)
[2018-03-31] MEDS: Acetaminophen 500 MG Tablet 1000 MG PO (01:38)
[2018-03-31 01:45] LABS: Differential Indicated SCAN CRITERIA MET; POSITIVE COUNT NO; POSITIVE DIFFERENTIAL YES; POSITIVE MORPHOLOGY NO
[2018-03-31 01:46] LABS: ALB/GLOB Ratio 0.8 RATIO (0.9-2.4); AST(SGOT) 22 U/L (15-37); Alanine Aminotransfer ALT/SGPT 42 U/L (13-56); Albumin, Serum 3.7 g/dL (3.2-5.0); Alkaline Phosphatase 111 U/L (45-117); Anion Gap 7 (5-15); BUN 18 mg/dL (7-18); BUN/Creat Ratio 26.9 RATIO (10-20); Calcium,Total 8.5 mg/dL (8.5-10.1); Chloride 104 mmol/L (98-107); Creatinine, Serum 0.67 mg/dL (0.55-1.02); EST Glomerular Filtration Rate 115 mL/min (>60); Est Glom Filt Rate - Afr Amer 139 mL/min (>60); Estimated Creatinine Clearance 126.99 ml/min; Globulin 4.7 g/dL (2.2-4.2); Glucose 115 mg/dL (74-106); Potassium 3.4 mmol/L (3.5-5.1); Protein, Total 8.4 g/dL (6.4-8.2); Sodium Level 137 mmol/L (136-145)
[2018-03-31 01:53] LABS: Pregnancy, Serum, hCG Quali. NEGATIVE Negative (0-9 Nonpreg)
[2018-03-31 02:11] LABS: Platelet Estimate ADEQUATE (ADEQ)
[2018-03-31 02:12] LABS: Differential Comment SCANNED
[2018-03-31 02:41] LABS: Lipase 62 U/L (73-393)
--- NOTE | 2018-03-31 03:31 | ED.DEP ---
ED Disposition - Plan for ED Patient: Instructions: ED Nausea Vomiting Referrals: Bryan Kenny MD [STAFF PHYSICIAN] -
[2018-03-31 03:52] VITALS: BP 124/86; PULSE 97; RESP 15; O2SAT 100
== END 2018-03-31 03:54 | disposition home or self-care (01) ==
LOC: ED 03-31 00:57
PROVIDERS: Emergency Provider Emergency Medicine
DX: R11.2 Nausea with vomiting, unspecified (principal); R19.7 Diarrhea, unspecified; R50.9 Fever, unspecified; K80.20 Calculus of gallbladder without cholecystitis without obstruction; R00.0 Tachycardia, unspecified
CPT/HCPCS: 80053; 83690; 84703; 85025; 96361; 96374; 99284; J7030; J2405

== ENCOUNTER 2023-07-19 18:01 | Emergency (ER) | payer MEDICAID, SELFPAY ==
[2023-07-19 18:01] VITALS: BP 135/88; PULSE 102; RESP 16; TEMP 36.7; O2SAT 96; BMI 28.1
--- NOTE | 2023-07-19 18:17 | ED.VIS.LOWEX ---
HPI History of Present Illness Chief Complaint: Lower Extremity Injury Informant: patient Narrative Narrative: Patient fell down 5 stairs inside their home today, she twisted her left ankle and then slid down the rest no other injury barely able to put any weight on it due to pain. PFSH PFS Medical History COVID-19 Gallstone Home Medications ?Medication ?Instructions ?Recorded ?Last Taken ?Type NK 03/30/18 Unknown History dexamethasone 4 mg tablet 4 mg PO DAILY #5 tabs 01/10/21 Unknown Rx (Decadron) Allergy/AdvReac Type Severity Reaction Status Date / Time No Known Allergies Allergy Verified 07/19/23 18:03 Family History Mother Cervical cancer Surgical History History of cholecystectomy Social History (Updated 01/10/21 @ 14:57 by Kelly Andrea) Smoking Status: Never smoker alcohol intake: never ROS ROS ED Constitutional Constitutional ED: Denies chills or fever(s) Musculoskeletal Musculoskeletal: Reports extremity pain; Denies neck pain Integumentary Denies Abrasions, rash or wounds Neurologic Neurologic: Denies paresthesias or weakness EXAM Physical Exam Const Vital Signs: 07/19/23 18:01 Temperature 98.1 F Temperature Source Temporal Pulse Rate 102 H Respiratory Rate 16 Blood Pressure 135/88 H Blood Pressure Mean 103 Pulse Ox 96 Oxygen Delivery Method Room Air Positive well nourished and well developed General Appearance ED: well developed and NAD Neck full ROM and supple Back/Spine normal ROM and normal to inspection Extremity Extremity Narrative: Swelling and tenderness to the left lateral malleolus and distal fibula just proximal to that. No deformities. No tenderness at the medial malleolus, base of the fifth metatarsal, or proximal fibula. Limited range of motion due to pain. Joint stable. Neuro oriented x3, no focal motor deficits and no sensory deficits noted Sensorium / Orientation: alert Psych mental status grossly normal and thought process normal Skin no wounds Rashes: no rashes MDM MDM MDM Narrative Medical decision making narrative: Three-view x-ray series of the left ankle on my interpretation are negative for acute fracture or dislocation. Radiology was in agreement. Patient reassured, given an Aircast as well as crutches to help her get around, follow-up if not improving after 1 to 2 weeks. Radiography Diagnostic Testing: Clinical Impression(s) from Imaging Studies Ankle X-Ray 07/19/23 18:23 IMPRESSION: Negative left ankle x-rays. Electronically Signed: Fred Mckeon MD at 18:30 EDT Reading Location ID and State: [facility] / [place] , Service support , Discharge Plan Triage Chief Complaint: Lower Extremity Injury ED Provider: Peter Toribio Dx/Rx/DC Orders Clinical Impression: Sprain of ankle, left Instructions: ED Ankle Sprain (Adult) Prescriptions: No Action dexamethasone [Decadron] 4 mg tablet 4 mg PO DAILY Qty: 5 0RF NK Primary Care Provider: Care Physician,No Primary Referrals: Doctor,Your [Non-Staff] - 10-14 Days if not better Print Language: Telugu Disposition Disposition: Home, Self Care
--- NOTE | 2023-07-19 18:23 | RAD_ITS ---
EXAM: XR LEFT ANKLE COMPLETE, 3 OR MORE VIEWS CLINICAL INDICATION: injury TECHNIQUE: Frontal, lateral and oblique views of the left ankle. COMPARISON: No relevant prior studies available. FINDINGS: BONES/JOINTS: Unremarkable. No acute fracture. No subluxation. Normal alignment. Preservation of the joint space. No sclerotic or destructive changes observed. SOFT TISSUES: Unremarkable. No soft tissue swelling or gas. No radiopaque foreign body. RAD/Ankle min 3 Views IMPRESSION: Negative left ankle x-rays. Electronically Signed: Fred Mckeon MD at 18:30 EDT ,
[2023-07-19] MEDS: Naproxen 500 MG Tablet PO (19:11)
== END 2023-07-19 19:43 | disposition home or self-care (01) ==
LOC: ED 19:09
PROVIDERS: Emergency Provider Emergency Medicine; Visit Provider Emergency Medicine
DX: S93.402A Sprain of unspecified ligament of left ankle, initial encounter (principal); W10.9XXA Fall (on) (from) unspecified stairs and steps, initial encounter; Y92.009 Unspecified place in unspecified non-institutional (private) residence as the place of occurrence of the external cause
CPT/HCPCS: 73610; 99283

== ENCOUNTER 2023-11-03 06:44 | Emergency (ER) | payer MEDICAID, SELFPAY ==
[2023-11-03 06:45] VITALS: BP 144/81; PULSE 61; RESP 18; TEMP 37; O2SAT 100; BMI 30.3
[2023-11-03 07:11] VITALS: O2SAT 98
--- NOTE | 2023-11-03 07:11 | RAD_ITS ---
STUDY: X-RAY CHEST REASON FOR EXAM: Female, 28 years old. CHEST PAIN TECHNIQUE: Single AP portable view of the chest. COMPARISON: Comparison is made with prior study dated December 13, 2017. FINDINGS: EKG electrodes are seen. The lungs are clear and expanded. There is no demonstrated pleural abnormality. Normal size heart. Normal mediastinum and altagracia. Normal visualized pulmonary arteries. Normal visualized aortic arch and descending thoracic aorta. Normal visualized thoracic spine. Normal visualized ribs, clavicles, and shoulders. There is no demonstrated abnormality of the visualized soft tissue structures of the upper abdomen. RAD/Chest 1 View (Portable) IMPRESSION: Normal x-ray examination of the chest. Electronically Signed: Stoney Singh MD at 8:03 EDT ,
--- NOTE | 2023-11-03 07:11 | EKG12_ITS ---
Test Reason : CP Blood Pressure : / mmHG Vent. Rate : 063 BPM Atrial Rate : 063 BPM P-R Int : 128 ms QRS Dur : 084 ms QT Int : 430 ms P-R-T Axes : 023 -06 026 degrees QTc Int : 440 ms Normal sinus rhythm Normal ECG Confirmed by Carlton Perkins ([id number]), web content editor ADRIANA GOEL ([id number]) on 11/04/2023 10:25:33 AM Referred By: CLAIRE Confirmed By:Carlton Perkins
--- NOTE | 2023-11-03 07:12 | EDS_ITS ---
HPI History of Present Illness Chief Complaint: Chest Pain Informant: patient Onset/Context/Timing Onset: Today and Hours Activity at onset: gradual Timing: Continuous Quality: Positive for Aching Location: Substernal Current Severity: Mild Maximum Severity: Mild Worsened By: Nothing Relieved By: Nothing Associated Symptoms: Negative for Nausea, Vomiting, Diaphoresis, Dyspnea, Cough, Lightheadedness, Acid Reflux or Palpitations Narrative Narrative: Healthy 28-year-old female prior cholecystectomy. Complaining of midsternal chest discomfort began around 530 this morning while she was getting ready for work. Denies other symptoms. Denies any recent exertional dyspnea or exertional chest pain. No cardiac history. No history of DVT or PE or risk factors. No recent travel, surgery or immobilization. No hemoptysis. No leg pain or swelling. No family history of clotting disorder. No history of indigestion. Patient has had this before without specific diagnosis. Nothing particular makes the pain better or worse. Denies recent illness. Prior Similar Symptoms: Yes Recent Illness/Hospitalization: No CVD Risk Factors: Negative for Hypertension, Diabetes, Hypercholesterolemia or Family History 1' </=55 PE Risk Factors: Negative for Recent Travel/Surgery, Recent Immobilization, Prior DVT or PE, Cancer or OCP + Smoking + >/=35 TAD Risk Factors: Negative for Marfan's Syndrome [facility] Medical History COVID-19 Gallstone Home Medications ?Medication ?Instructions ?Recorded ?Last Taken ?Type pantoprazole 20 mg tablet,delayed 20 mg PO DAILY #20 tabs 11/03/23 Unknown Rx release (Protonix) Allergy/AdvReac Type Severity Reaction Status Date / Time No Known Allergies Allergy Verified 11/03/23 06:48 Family History Mother Cervical cancer Surgical History History of cholecystectomy Social History Smoking Status: Never smoker alcohol intake: never ROS ROS ED ROS Narrative Denies recent illness. Constitutional Constitutional ED: Denies fever(s) Eyes Eyes: Reports none ENT ENT ED: Denies ear pain Cardiovascular Cardiovascular: Reports as per HPI and chest pain Respiratory/Chest Respiratory/Chest: Denies cough, dyspnea or dyspnea on exertion Gastrointestinal Gastrointestinal: Denies abdominal pain Genitourinary Genitourinary ED: Denies dysuria Musculoskeletal Musculoskeletal: Denies arthralgias Integumentary Denies abscess Neurologic Neurologic: Denies headache(s) Psychiatric Psychiatric: Denies anxiety Endocrine Endocrinology: Denies cold intolerance Hematologic/Lymphatic Hematologic/Lymphatic: Denies easy bleeding Allergic/Immunologic Allergic/Immunologic ED: Denies mouth swelling EXAM Physical Exam Narrative Exam Narrative: Well-appearing 28-year-old female. Vital signs stable afebrile. Pulse ox 100% on room air no hypoxia. H EENT exam unremarkable. Neck nontender. No lymphadenopathy. Lungs clear to auscultation bilaterally. Heart regular rate and rhythm no murmur. Rate about 60. Chest wall, ribs and sternum are completely nontender is no reproducible pain. No discoloration or signs of trauma. Abdomen is soft and nontender. No peritoneal signs. Moving all 4 extremities. 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 Dorsi plantarflexion intact. Calves are nontender without edema or cords. Equal symmetrical radial pulses. Back nontender. Neurologically she is awake and alert no focal motor deficits. Answering questions following commands. Her significant other is at bedside. Const Vital Signs: 11/03/23 06:45 11/03/23 06:48 11/03/23 07:11 Temperature 98.6 F Temperature Source Oral Pulse Rate 61 Respiratory Rate 18 Respiratory Effort Normal Non-Labored Blood Pressure 144/81 H Blood Pressure Mean 102 Pulse Ox 100 98 Oxygen Delivery Method Room Air Room Air 11/03/23 08:45 Temperature Temperature Source Pulse Rate 51 L Respiratory Rate 17 Respiratory Effort Blood Pressure 115/80 Blood Pressure Mean 91 Pulse Ox 99 Oxygen Delivery Method Room Air Positive well nourished and well developed; Negative for obese, cachectic, contractures or unkempt General Appearance ED: well developed and NAD; Negative for unkempt, cachectic, contractures or pallor Nutritional Appearance: Negative for cachectic or obese HEENT Reports moist mucous membranes normocephalic and atraumatic Eyes PERRL and EOMs intact bilaterally General Eye ED: Negative for pale conjunctiva or scleral icterus Neck no lymphadenopathy, supple and no JVD General: Negative for tenderness Chest Wall inspection of chest normal and palpation of chest normal Chest: Negative for tenderness Resp normal respiratory effort and clear to auscultation bilaterally Effort and Inspection: Negative for respiratory distress Auscultation: Negative for rales, rhonchi or wheezes Cardio regular rate, regular rhythm, S1 normal heart sound, S2 normal heart sound and no murmurs Rate: Negative for bradycardia or tachycardic Rhythm: Negative for abnormal rhythm Peripheral Pulses: pulses 2+ throughout GI normal to inspection, nondistended, normoactive bowel sounds, soft to palpation, non-tender, non-distended and no masses Back/Spine no CVA tenderness and no thoracic nor lumbar tenderness General Back: Negative for CVA tenderness Cervical Spine: Negative for cervical spine tenderness Extremity normal to inspection General Extremety ED: Negative for edema, pulses abnormal or tenderness General Extremity: Negative for edema or pulses abnormal Neuro oriented x3 and CN's II-XII intact bilaterally Sensorium / Orientation: awake, alert, oriented to person, oriented to place and oriented to time; Negative for confused or lethargic Motor Exam: strength 5/5 throughout Psych mental status grossly normal Appearance: Negative for unkempt Attitude: No agitated Mood & Affect: Negative for depressed, anxious or tearful Skin no rashes or lesions noted and no wounds General Skin Exam: Negative for jaundice or pallor Rashes: No rashes noted Trauma: Negative for abrasion, laceration or puncture Heart Score History: Slightly/Non-Suspicious ECG: Normal Age: </= 45 years Risk Factors: No Risk Factors Troponin: </= Normal Limit Score: 0 MDM MDM MDM Narrative Medical decision making narrative: 28-year-old female with atypical, nonexertional, nonreproducible chest pain. She has no significant cardiac risk factors nor significant risk factors for PE. Pain is not pleuritic. She has normal vital signs. There is no tenderness to her chest wall. She undergo a cardiac workup. I will give her a GI cocktail this could be reflux. Her exam is benign. This does not sound cardiac. It does not sound like a PE. It definitely does not sound like a dissection. It is not reproducible for musculoskeletal pain. Repeat exam at 7:35 AM patient resting comfortably. Awaiting test results. Repeat exam at 9 AM patient states her discomfort is improving after the GI cocktail and Protonix. This may be secondary to reflux. Exam is unchanged. She appears comfortable. We are just awaiting her 2-hour troponin if it is okay she will be discharged home. History & Record Review Discussion w/independent historian: Patient Additional record(s) reviewed:: Prior inpatient record, Prior outpatient record, Prior ED visit and Prior labs Lab Data Attestation: I reviewed the patient's lab results. Lab results narrative: CBC normal. White count of 6. H&H of 13 and 40. Platelets 277. EKG normal sinus rhythm rate of 63. Chest x-ray normal. Chemistries show potassium of 3.3. Gap 4. Normal BUN of 12 and creatinine 0.9. Glucose 102. Initial troponin 4. 2-hour troponin is Labs: Laboratory Results - last 24 hr 11/03/23 06:56 WBC 6.6 RBC 4.51 Hgb 13.5 Hct 40.7 MCV 90.2 MCH 29.9 MCHC 33.2 RDW Std Deviation 40.7 RDW Coeff of Kelvin 12.5 Plt Count 277 MPV 9.9 Immature Gran % (Auto) 0.300 Neut % (Auto) 66.8 Lymph % (Auto) 20.1 [place] % (Auto) 6.5 Eos % (Auto) 4.9 Baso % (Auto) 1.4 H Absolute Neuts (auto) 4.4 Absolute Lymphs (auto) 1.32 Nucleated RBC % 0 Sodium 138 Potassium 3.3 L Chloride 108 H Carbon Dioxide 26.0 Anion Gap 4 L BUN 12 Creatinine 0.96 Estim Creat Clear Calc 98.45 Est GFR (MDRD) Af Amer 88 Est GFR (MDRD) Non-Af 73 BUN/Creatinine Ratio 12.5 Glucose 102 Calcium 9.1 Troponin I High Sens 4 Radiography Chest X-Ray - ED: 1 View, Read by ED Physician, Normal, Heart, Lungs, Mediastinum, Bony Structures and No Acute Disease Diagnostic Testing: Clinical Impression(s) from Imaging Studies Chest X-Ray 11/03/23 07:11 IMPRESSION: Normal x-ray examination of the chest. Electronically Signed: Stoney Singh MD at 8:03 EDT , Chest x-ray, portable, single view interpreted by myself shows no acute abnormality. Normal cardiac silhouette. Normal mediastinum. Normal lung mullen. Rhythm Strip Rhythm Strip: Sinus Rhythm Rate: 63 Ectopy: None EKG Initial EKG: Attestation: I personally reviewed and interpreted this EKG as follows: Interpretation: Sinus Rhythm and No Acute Injury Pattern Comments: Normal sinus rhythm rate of 63 no acute signs of [place] nor ischemia. Discharge Plan Triage Chief Complaint: Chest Pain ED Provider: Michael Colmenares Dx/Rx/DC Orders Clinical Impression: Chest pain, Acid reflux Instructions: ED Chest Pain, Noncardiac, ED GERD (Adult) Prescriptions: New pantoprazole [Protonix] 20 mg tablet,delayed release (DR/EC) 20 mg PO DAILY Qty: 20 0RF Primary Care Provider: Care Physician,No Primary Referrals: Julian Marmolejo MD [Med Staff - [employer]] - As Needed Care Physician,No Primary [Primary Care Provider] - Activity Restrictions/Additional Instructions: This may have been secondary to gastroesophageal reflux or indigestion. I wrote your prescription for Protonix. Try that it may help with the symptoms. Print Language: Lebanese Disposition Disposition: Home, Self Care
[2023-11-03 07:22] LABS: Absolute Lymphocyte Count 1.32 X10^3/uL (0.83-4.51); Absolute Neutrophil Count 4.4 X10^3/uL (2.0-7.7); Basophil# 0.09 X10^3/uL; Basophil% 1.4 % (0-1); Eosinophil# 0.32 X10^3/uL; Eosinophils% 4.9 % (0-5); Hematocrit 40.7 % (37-47); Hemoglobin 13.5 g/dL (12.0-15.0); Lymphocyte # 1.32 X10^3/ul (0.83-4.51); Lymphocyte % 20.1 % (19-41); Mean Corp Hgb Conc 33.2 g/dL (32-36); Mean Corpuscular Hgb 29.9 pg (27.0-32.0); Mean Corpuscular Volume 90.2 fL (81-99); Mean Platelet Vol. 9.9 fl (6.2-12.0); Monocyte# 0.43 X10^3/uL; Monocyte% 6.5 % (0-10); NRBC Flagged by Analyzer 0 % (0-5); Neutrophil % 66.8 % (47-70); Platelet Count 277 K/mm3 (150-450); RBC Distribution Width CV 12.5 % (11.6-14.6); RBC Distribution Width SD 40.7 fl (35.1-43.9); Red Blood Count 4.51 M/mm3 (4.2-5.4); White Blood Count 6.6 K/mm3 (4.4-11.0)
[2023-11-03] MEDS: Lidocaine 2% Viscous15 ML UDC 15 ML PO (07:33)
[2023-11-03] MEDS: Pantoprazole Sodium 40 MG Tablet PO (07:33)
--- NOTE | 2023-11-03 07:36 | NURSING ---
NO OLD EKGS
[2023-11-03 07:41] LABS: Anion Gap 4 (5-15); BUN 12 mg/dL (7-18); BUN/Creat Ratio 12.5 RATIO (10-20); Calcium,Total 9.1 mg/dL (8.5-10.1); Chloride 108 mmol/L (98-107); Creatinine, Serum 0.96 mg/dL (0.55-1.02); EST Glomerular Filtration Rate 73 mL/min (>60); Est Glom Filt Rate - Afr Amer 88 mL/min (>60); Estimated Creatinine Clearance 98.45 ml/min; Glucose 102 mg/dL (74-106); Potassium 3.3 mmol/L (3.5-5.1); Sodium Level 138 mmol/L (136-145); Troponin-I HS (w/2H Reflex) 4 pg/mL (3.0-54.0)
[2023-11-03] MEDS: Mag /Aluminum/Simeth WCH UDC 30 ML ORAL.SUSP PO (07:52)
[2023-11-03 08:45] VITALS: BP 115/80; PULSE 51; RESP 17; O2SAT 99
[2023-11-03 09:19] LABS: Reflex Troponin-HS? (from REC) Y
[2023-11-03 10:00] VITALS: BP 117/76; PULSE 56; RESP 17; O2SAT 98
[2023-11-03 10:07] LABS: Troponin-I HS 4 pg/mL (3.0-54.0)
[2023-11-03 10:11] VITALS: BP 117/73; PULSE 56; RESP 17; TEMP 36.6; O2SAT 99
== END 2023-11-03 10:14 | disposition home or self-care (01) ==
PROVIDERS: Emergency Provider Emergency Medicine; Visit Provider Emergency Medicine
DX: R07.9 Chest pain, unspecified (principal); K21.9 Gastro-esophageal reflux disease without esophagitis; Z86.16 Personal history of COVID-19
CPT/HCPCS: 71045; 80048; 84484; 85025; 93005; 99284; A4216